=== PATIENT | male | born 1955 | race Caucasian/White ===

== ENCOUNTER 2017-04-19 09:22 | Day surgery (SDC) | payer MEDICARE ==
[~2017-04-19] VITALS: Ht 167.6 cm; Wt 107.1 kg
[~2017-04-19 09:22] MED LIST: 1-ME1LIQ PO; ABIL2TAB2 PO; ASPI325T PO; CARV12.52 OR; CYMB60CA PO; DIPH2%T PO; GLYB5TAB3 PO; HYDR50 PO; KLOR20TA6 PO; LANTUSP SQ; LISI-366 PO; METF-324 PO; METO100T PO; NITR0.4S SL; OMEP20TA PO; PRAV40TA2; TRAD5TAB PO; TRAZ100T4; XYZA5TAB2 PO
[2017-04-19] MEDS ORDERED: NS 1000 ML @100 MLS/HR IV SCH (10:00)
[2017-04-19 10:33] VITALS: BP 145/91; PULSE 80; RESP 18; TEMP 97.5; O2SAT 92
[2017-04-19] MEDS ORDERED: ASPI1TAB91 PO (10:39)
[2017-04-19] MEDS ORDERED: NEXI40GR (10:39)
[2017-04-19] MEDS ORDERED: CLON0.1T PO (10:39)
[2017-04-19] MEDS ORDERED: GLIP5TAB8 PO (10:39)
[2017-04-19] MEDS ORDERED: ARIP1TAB15 PO (10:39)
[2017-04-19] MEDS ORDERED: TRAD5TAB PO (10:39)
[2017-04-19] MEDS ORDERED: LAMO200T PO (10:39)
[2017-04-19] MEDS ORDERED: METF-758 PO (10:39)
[2017-04-19] MEDS ORDERED: MELO-1 PO (10:39)
[2017-04-19] MEDS ORDERED: BETH25TA2 PO (10:39)
[2017-04-19] MEDS ORDERED: SPIR25 PO (10:39)
[2017-04-19] MEDS ORDERED: REME45TA PO (10:39)
[2017-04-19] MEDS ORDERED: CARV25TA PO (10:39)
[2017-04-19] MEDS ORDERED: MIRA50TA PO (10:39)
[2017-04-19] MEDS ORDERED: ADVA100A INH (10:39)
[2017-04-19] MEDS ORDERED: XANA1TAB2 PO (10:39)
[2017-04-19] MEDS ORDERED: BUPR150T3 PO (10:39)
[2017-04-19] MEDS ORDERED: ROSU10 PO (10:39)
[2017-04-19] MEDS ORDERED: LISI40TA PO (10:39)
[2017-04-19] MEDS ORDERED: DULO1CAP3 PO (10:39)
[2017-04-19] MEDS ORDERED: AMLO5TAB2 PO (10:39)
[2017-04-19] MEDS ORDERED: ARIP1TAB5 PO (10:39)
[2017-04-19 10:47] LABS: AUTOMATED NEUTROPHIL # 9.9 TH/MM3 (1.8-7.7); BASOPHIL % 0.2 % (0.0-2.0); HEMATOCRIT 42.4 % (39.0-51.0); HEMO FLAGS DIFF FINAL; LYMPH % 8.3 % (9.0-44.0); LYMPHOCYTE # 0.9 TH/MM3 (1.0-4.8); MEAN CELL VOLUME 86.8 FL (80.0-100.0); MEAN CORPUSCULAR HEMOGLOBIN 28.3 PG (27.0-34.0); MEAN CORPUSCULAR HGB CONC 32.6 % (32.0-36.0); MONO % 2.2 % (0.0-8.0); NEUT % 89.3 % (16.0-70.0); PLATELET COUNT 226 TH/MM3 (150-450); RED BLOOD COUNT 4.89 MIL/MM3 (4.50-5.90); RED CELL DISTRIBUTION WIDTH 15.2 % (11.6-17.2); WHITE BLOOD COUNT 11.1 TH/MM3 (4.0-11.0)
[2017-04-19 10:55] LABS: APTT (PATIENT) 24.6 SEC (24.3-30.1)
[2017-04-19 11:14] LABS: BICARBONATE 26.8 MEQ/L (21.0-32.0); POTASSIUM 4.1 MEQ/L (3.5-5.1)
[2017-04-19] MEDS ORDERED: HEPARIN-NS/PF INJ 500 ML ONE (12:10)
[2017-04-19] MEDS ORDERED: MIDAZOLAM HCL 2 MG/2 ML VIAL ONE (12:22)
--- NOTE | 2017-04-19 13:23 | CATHPROC ---
Liii[facility] HIS Report Study Information Study Number Admission Scheduled Start Study Start [id number] Apr 19 2017 9:22AM 04/19/2017 Apr 19 2017 12:13PM [facility] Cardiac Catheterization Admit Source Facility Department Emergency department [facility] Physician and Clinical Staff Initial Lázaro Laguerre Athletic Equipment Manager Nahum Godfrey,MICHELL Athletic Equipment Manager Cherelle Quinn RN Recorder Cornelio SolimanRT(R) Scrub Gus Thapa RCIS(BS) Procedures Performed Procedure Location (Site) Vessel Name Angiogram LV LV Ventricle Coronary Angiograms LCA Left Coronary Coronary Angiograms RCA Right Coronary L Heart Cath Equipment Time Chief Psychology Description Size Mfg Part Number Used/Scraped TRANSDUCER, TR1-800-DENTISTAVE [id number] 12:37 VAZ JAIMES * Used W/STOCKCOCK *[id number] INTRODUCER SET, [id number] 13:01 [employer] FR 5 Used MICROPUNCTURE *[id number] 538-476 *[id number] 538-420 *[id number] 538-453S *[id number] 12:37 MEDLINE INDUSTRIES PACK, CCL CUSTOM * Used *[id number] 12:37 wrenchguys mobile PACER PEN, SKIN DUAL W/ RULER * Used *[id number] 12:37 Pi[employer]ora WIRE, 3MMJ .035 180CM 180CM Used *[id number] PROBE COVER, STERILE [id number] 12:37 Pl[employer] MEDICAL * Used ULTRASOUND W/ GEL *[id number] 12:37 NAMIC MANIFOLD, 4 PORT * Used *[id number] 12:37 NYCOMED OMNIPAQUE, 350 MG, 150ML 150ML [id number] Used [id number] 12:37 PANTOJA MEDICAL BLANKET,WARM AIR CCL * Used *[id number] 12:37 Lotus Tissue RepairUMO MEDICAL SHEATH, FR4 TERUMO (10CM) FR 4 [id number] Used History: Allergies Allergy Reaction Contrast Media "anaphylactic shock" Penicillin "stop breathing" History: Risk Factors Family History of Hypertension Dyslipidemia Previous ME Previous Heart Failure Premature CAD Yes Yes No No No Prior Valve Prior PCI Prior CABG Surgery No No No Cerebrovascular Peripheral Artery Chronic Lung On Dialysis Diabetes Diabetes Therapy Disease Disease Disease No No No Yes Yes Oral History: Stress Tests Stress or Imaging Studies Performed No History: Other Current Smoker Quit Packs a Day Years Used Pack Years No 27 Years Ago 1 3 3 Labs Hgb (g/dl) Hct (%) WBC (l/cumm) Platelets (thousands) 11.60-17.00 35.00-51.00 4.00-11.00 150.00-450.00 13.8 42.4 11.1 226 Glucose (mg/dl) BUN (mg/dl) Creatinine (mg/dl) BUN:Creatinine (1:x) 74.00-106.00 7.00-18.00 0.50-1.30 10.00-20.00 235 22 1.4 15.7 Na (meq/l) K (meq/l) 136.00-145.00 3.50-5.10 137 4.1 INR (PTT:PT) 0.90-1.10 1 CPK-MB (ng/ML) 0.50-3.60 Not Drawn Medication Medication Total Dose (Bolus/Oral) Medication Total Dosage/Unit 1% XYLOCAINE 20 mL FENTANYL 50 mcg VERSED 1 mg Medications (Bolus/Oral) Medication Time Given Dosage/Unit Administered By Reason FENTANYL 04/19/2017 12:57:18 PM 50 mcg Cherelle Quinn 50 mcg FENTANYL given in lab by Cherelle Quinn RN in Left Antecubital via Peripheral IV. VERSED 04/19/2017 12:57:51 PM 1 mg Cherelle Quinn 1 mg VERSED given in lab by Cherelle Quinn, MICHELL in Left Antecubital via Peripheral IV. 1% XYLOCAINE 04/19/2017 12:58:53 PM 20 mL Lázaro Colin 20 mL 1% XYLOCAINE given in lab by Lázaro Colin in Right Groin via Subcutaneous. Medication (Drip) Medication Time Given Dosage/Unit Concentration/Unit Diluent (ml) Solutio n IV Solutions 04/19/2017 12:13:05 PM 0 mL (IV) 500 NaCl .9 Patient arrived on IV Solutions in Left Antecubital via Peripheral IV. Pump/Drip Flow = 20 ml/hr usin g NaCl .9. Initial Case Assessment Chronological Log Time Study Chronological Log 12:12:50 Patient arrived via Bed. 12:12:51 Patient Name, D.O.B, / Armband Verified By R.N. 12:12:52 Consent signed by the physician and the patient and verified by the [facility] staff. 12:12:53 Pre-op and post- op instructions given; patient acknowledges understanding of instructions. 12:12:57 Patient has been NPO for Less than 6Hrs. 12:12:59 Skin Breakdown- 12:13:00 Patient Warmer Placed on the Table. 12:13:04 A # 20 IV was noted in the Antecubital (left). Grade = 0 12:13:05 Patient arrived on IV Solutions in Left Antecubital via Peripheral IV. Pump/Drip Flow = 20 ml/hr using NaCl .9. 12:13:06 History and physical on the chart or being dictated. 12:13:07 Assessment: Initial Case Vitals capture started with the following parameters, Patient=Adult, Interval=5 min, Initial Pr qbwxhc=258 mmHg, 12:25:17 Deflation Rate=5 mmHg 12:25:57 HR=89 bpm, RXTM=445/99 mmhg, SpO2=93.0 %, Resp=21 B/min, Gambino=2 12:27:09 Reference ECG taken 12:28:46 MD paged 12:29:21 Right groin prepped with 2% chlorhexidine, and with a 3 min. waiting time. 12:31:01 HR=88 bpm, LNUD=343/105 mmhg, SpO2=93.0 %, Resp=37 B/min, Gambino=2 12:35:19 Pressure channel 1 zeroed. 12:36:04 HR=89 bpm, WQJT=351/108 mmhg, SpO2=92.0 %, Resp=21 B/min, Gambino=2 12:41:03 HR=87 bpm, IPAY=001/106 mmhg, SpO2=94.0 %, Resp=16 B/min, Pain=0, Timur=10, Gambino=2 12:46:00 HR=86 bpm, WNCU=949/102 mmhg, SpO2=93.0 %, Resp=18 B/min, Pain=0, Timur=10, Gambino=2 12:50:15 MD arrived 12:51:01 HR=87 bpm, XCQU=175/103 mmhg, SpO2=97.0 %, Resp=20 B/min, Pain=0, Timur=10, Gambino=2 12:56:04 HR=87 bpm, XADI=685/105 mmhg, SpO2=92.0 %, Resp=13 B/min, Pain=0, Timur=10, Gambino=2 Time Out. Correct patient, correct procedure,correct physician, power injector loaded or not lo aded with contrast with 12:57:08 surgical team present. Time Out Concurred by MD, individual staff and DIALS SUPERVISOR in procedure 12:57:18 50 mcg FENTANYL given in lab by Cherelle Quinn, MICHELL in Left Antecubital via Peripheral IV. 12:57:44 Case Start 12:57:51 1 mg VERSED given in lab by Cherelle Quinn, MICHELL in Left Antecubital via Peripheral IV. 12:58:53 20 mL 1% XYLOCAINE given in lab by Lázaro Colin in Right Groin via Subcutaneous. 13:00:08 Access site was Right Femoral Artery using ultrasound 13:00:26 A INTRODUCER SET, MICROPUNCTURE FR 5 was advanced into the Fem Art (right) using the Percut aneous technique. A SHEATH, FR4 TERUMO (10CM) FR 4 was exchanged in the Fem Art (right). This was necessary in or jarrett to 13:00:45 accomodate a larger catheter. 13:01:03 HR=88 bpm, HBTN=961/106 mmhg, SpO2=91.0 %, Resp=15 B/min, Pain=0, Timur=10, Gambino=2 A JL 4.0 INFINITI CATHETER FR 4 was advanced over a wire. OMNIPAQUE, 350 MG, 150ML 150ML was us ed for 13:01:11 injections. Recorded Pressure: Ao, HR=88, Condition=Condition 1 13:02:43 (Aorta) Ao 154/100/126 13:02:53 The LCA was injected and visualized at various angles. OMNIPAQUE, 350 MG, 150ML 150ML used . After removing the current catheter a 3DRC INFINITI CATHETER FR 4 was advanced over a WIRE, 3MM J .035 180CM 13:05:39 180CM. 13:06:02 HR=89 bpm, WVUL=487/102 mmhg, SpO2=93.0 %, Resp=14 B/min, Pain=0, Timur=10, Gambino=2 13:06:34 The RCA was injected and visualized at various angles. OMNIPAQUE, 350 MG, 150ML 150ML used . 13:07:37 Catheter was removed A PIGTAIL ANG. INFINITI CATHETER FR 4 was advanced over a wire. OMNIPAQUE, 350 MG, 150ML 150ML was used 13:08:41 for injections. Recorded Pressure: LV, HR=90, Condition=Condition 1 13:09:57 (Left Ventricle) LV 152/12/25 13:11:03 HR=90 bpm, ZAZJ=058/104 mmhg, SpO2=93.0 %, Resp=13 B/min, Pain=0, Timur=10, Gambino=2 13:11:13 The LV was injected at 8 cc/sec for a total of 32. OMNIPAQUE, 350 MG, 150ML 150ML used. Recorded Pressure: LV, Ao, HR=91, Condition=Condition 1 13:12:05 (Left Ventricle) LV 150/16/25, (Aorta) Ao 153/89/120 13:12:31 Catheter was removed 13:12:56 Case End 13:13:09 Catheter(s) removed without difficulty 13:13:18 No case complications noted. 13:13:19 Cine recording checked. 13:13:53 DOCU called. Spoke to [place]. 13:16:00 Bedside Report will be given. 13:16:02 HR=88 bpm, ACFV=115/101 mmhg, SpO2=94.0 %, Resp=18 B/min, Pain=0, Timur=10, Gambino=2 13:16:02 Contrast Scanned 13:16:06 A Left Heart Cath was performed. 13:20:19 Patient moved to [facility] End Study - Contrast Media Used In Study Contrast Total Opened (mL) Total Used (mL) Total Wasted (mL) Omnipaque 90 90 0 End Study - Maximum Contrast Load Max Contrast Load (mL) 382.5 End Study - Radiation Exposure Fluoro Time (minutes) 2.2 End Study - Patient Disposition Complications Transferred To Interventional Outcome No [facility] No attempt made
[2017-04-19] MEDS ORDERED: SODIUM CHLOR 0.9% 1000 ML INJ 1,000 ML IV SCH (14:16)
--- NOTE | 2017-04-19 14:26 | MA ---
cc: ROLO LARKIN MD, HUMAYUN A. M.D. DATE: 04/19/2017 PROCEDURE Cardiac catheterization. INDICATION FOR CATHETERIZATION 1. Unstable angina. 2. Prior history of coronary artery disease. 3. History of substernal chest pain into the right arm at rest and on exertion with marked shortness of breath. 4. States he had a prior myocardial infarction in the past. CONSENT A full informed consent was obtained prior to the procedure. The risks of , bleeding, myocardial infarction, perforation, aspiration, and in particular renal failure given his elevated creatinine were reviewed in great detail. The patient fully appeared to understand the risks, particularly the renal failure and was fully agreeable to proceed. PROCEDURAL STATEMENTS The patient was prepped and draped in the usual manner. The right femoral artery was entered using a micropuncture technique via a 4-Fijian sheath. Left and right coronary catheters were used to intubate the left and right coronaries. A pigtail catheter was used to intubate the left ventricle. Multiple angiographic views were carried out. At the end of the procedure all catheters were removed. The sheath was left in place to be pulled in the holding area. The patient will be discharged later today. Follow-up in our office in one week. FINDINGS HEMODYNAMICS The aortic pressure was 154/100 with a mean of 126. The left ventricular pressure was 150 with a left ventricular end-diastolic pressure of 25. There was no evidence of significant gradient on pullback across the LV outflow tract and aortic valve. LEFT VENTRICULOGRAM The overall left ventricular ejection fraction was 60%. There was no evidence of significant mitral regurgitation or mural thrombus. CORONARIES The left main was large. The left anterior descending artery was a large vessel with a large intermediate ramus vessel. The left anterior descending artery had a mid LAD 60% stenosis. There was a large diagonal branch that was free of significant disease. There was also a large intermediate ramus branch that was free of significant disease. The circumflex artery was a medium-sized vessel with a large first obtuse marginal branch, small second obtuse marginal branch. This was also free of significant disease. The right coronary artery was a co-dominant artery with a large posterior descending artery. In the proximal right coronary there was a 60% stenosis. CONCLUSIONS Two-vessel coronary artery disease with 60% LAD and 60% proximal right coronary disease. PLAN Medical management. GAGNA Irby MD,MATT ROSS/INDIGO /1:29 PM /2:11 PM [facility]
[2017-04-19] MEDS ORDERED: MISC INFORMATION XX ONE (14:30)
[2017-04-19] MEDS ORDERED: IOHEXOL 350 MG/ML 100 ML BTL (for Cath Lab) OTHER ONE (15:42)
--- NOTE | 2017-04-20 09:56 | EKG ---
Date Performed: 04/19/2017 Time Performed: 10:44:42 PTAGE: 62 years EKG: Sinus rhythm . Left axis deviation Right bundle branch block Inferior T wave changes are nonspecific Low QRS volta ges in precordial leads Compared to prior tracing no significant change Abnormal ECG PREVIOUS TRACING : 10/31/2012 11.51 DOCTOR: Chico Tyson Interpretating Date/Time 04/20/2017 09:51:22
== END 2017-04-19 17:52 | disposition home or self-care (01) ==
LOC: HDOC 09:22 → HDIC 09:27 → HDOC 17:52
PROVIDERS: ATTEND Internal Medicine Cardiovascular Disease
DX: R07.9 Chest pain, unspecified (principal); I25.110 Atherosclerotic heart disease of native coronary artery with unstable angina pectoris; I25.2 Old myocardial infarction; R06.02 Shortness of breath; I45.10 Unspecified right bundle-branch block; R94.31 Abnormal electrocardiogram [ECG] [EKG]; I11.0 Hypertensive heart disease with heart failure; I50.9 Heart failure, unspecified; E78.5 Hyperlipidemia, unspecified; E11.9 Type 2 diabetes mellitus without complications; K21.9 Gastro-esophageal reflux disease without esophagitis; F41.9 Anxiety disorder, unspecified
CPT/HCPCS: 80048; 85025; 85610; 85730; 93005; 93458; C1769; C1893; J1644; J2250; J3010; J7030; Q9967